=== PATIENT | female | born 1960 | race Caucasian/White ===

== ENCOUNTER 2025-02-22 13:37 | Outpatient (CLI) | payer OTHER, SELFPAY ==
--- NOTE | ~2025-02-22 | MM_ITS ---
CORRECTED REPORT dictation correction in Findings category Findings should read There is no mammographic evidence for malignancy in the LEFT breast [facility] [place] 05/09/2025 This report was recreated on 05/09/25. Original report was Y TENDER EXAMINATION: MM screening april BI w kobe HISTORY: Screening TECHNIQUE: Craniocaudal and mediolateral oblique 3-D tomosynthesis images were obtained and synthetic 2-D images were generated. CAD analysis was submitted and interpreted. COMPARISON: No prior mammogram is available for comparison at this institution. BREAST PARENCHYMAL COMPOSITION: Not dense: There are scattered areas of fibroglandular density. FINDINGS: There are scattered small obscured masses in the right breast. There are no suspicious calcifications or architectural distortion. There is no mammographic evidence for malignancy in the LEFT breast. IMPRESSION: 1. Scattered obscured small right breast masses. 2. Additional mammographic views and possible breast ultrasound are recommended. BI-RADS Category 0: Incomplete: Needs additional imaging evaluation. Reviewed, dictated and finalized at location B. Y TENDER IMPRESSION: 1. Scattered obscured small right breast masses. 2. Additional mammographic views and possible breast ultrasound are recommended . BI-RADS Category 0: Incomplete: Needs additional imaging evaluation.
--- OUTSIDE RECORDS SUMMARY | 2025-02-22 07:29 | XMS_ITS | Encounter Summary ---
Author Organization [facility] Address [facility] [place] [address] Care Team Providers Care Pediatric Immunologist Name Role Phone Kwesi Chaudhry MD Primary Care Provider [phone] Reason for Referral * Imaging (Routine) - Closed Specialty Diagnoses / Procedures Referred By Venus torres Referred To Contact RADIOLOGY Diagnoses Other specified abnormal findings of blood chemistry Procedures NM PARATHYROID SCAN Kwesi Chaudhry MD [address] [facility] [address] [place] [address] Phone: tel: fax: Referral ID Status Reason Start Date Expiration Date Visits Re quested Visits Authorized [id number] Closed 02/15/2025 04/01/2025 4 4 NG ENGINEER Reason for Visit * Imaging (Routine) - Closed Specialty Diagnoses / Procedures Referred By Venus torres Referred To Contact RADIOLOGY Diagnoses Other specified abnormal findings of blood chemistry Procedures NM PARATHYROID SCAN Kwesi Chaudhry MD [address] [facility] [address] [place], [place] [address] Phone: tel: fax: Referral ID Status Reason Start Date Expiration Date Visits Re quested Visits Authorized [id number] Closed 02/15/2025 04/01/2025 4 4 Encounter Details Date Type Department Care Team (Late st Contact Info) Description 02/22/2025 7:29 AM PIPING ENGINEER Hospital Encounter [facility] [place] [address] Kwesi Chaudhry MD [address] [facility] [address] [place] [address] Arrived Social History Tobacco Use Types Packs/Day Years Used Date Smoking Tobacco: Never Assessed Comments Unknown Sex and Gender Information Value Date Recorded Sex Assigned at Female 01/31/2025 11:19 AM CDT Legal Sex Female 1:36 AM CDT Gender Identity Not on file Sexual Orientation Not on file documented as of this encounter Plan of Treatment Not on file documented as of this encounter Procedures Procedure Name Priority Date/Time Associated Diagnosis Comments NM PARATHYROID SCAN Routine 02/22/2025 1 :52 PM PIPING ENGINEER Other specified abnormal findings of blood chemistry documented in this encounter Results * NM PARATHYROID SCAN (02/22/2025 1:52 PM PIPING ENGINEER) Anatomical Region Laterality Modality Thyroid Nuclear Medicine 02/22/2025 2:04 PM PIPING ENGINEER Impressions 02/22/2025 2:11 PM PIPING ENGINEER IMPRESSION: No scintigraphic evidence for parathyroid hyperplasia or parathyroid adenoma. Ordered By: KWESI CHAUDHRY Interpreted By: Filiberto Ram MD, 02/22/2025 2:04 PM Narrative 02/22/2025 2:11 PM PIPING ENGINEER [address] [address] EXAMINATION: PARATHYROID SCINTIGRAPHY DATE: 02/22/2025 7:34 AM HISTORY: 64-year-old female with elevated parathyroid hormone and serum calcium. RADIOPHARMACEUTICAL: 21.7 mCi Tc-99m sestamibi via intravenous injection at the left hand. TECHNIQUE: Standard parathyroid scintigraphy with planar and SPECT imaging of the neck and upper chest at approximately 10 minutes and 4 hours after uneventful intravenous administration of radiotracer. COMPARISON: None. FINDINGS: There is normal distribution of radiotracer on early and delayed imaging. No persistent focal radiotracer uptake in the neck or superior mediastinum is demonstrated. Procedure Note Filiberto Ram MD - 02/22/2025 [facility] [address] EXAMINATION: PARATHYROID SCINTIGRAPHY DATE: 02/22/2025 7:34 AM HISTORY: 64-year-old female with elevated parathyroid hormone and serumcalcium. RADIOPHARMACEUTICAL: 21.7 mCi Tc-99m sestamibi via intravenous injectionat the left hand. TECHNIQUE: Standard parathyroid scintigraphy with planar and SPECT imagingof the neck and upper chest at approximately 10 minutes and 4 hours afteruneventful intravenous administration of radiotracer. COMPARISON: None. FINDINGS: There is normal distribution of radiotracer on early and delayed imaging.No persistent focal radiotracer uptake in the neck or superior mediastinumis demonstrated. IMPRESSION: No scintigraphic evidence for parathyroid hyperplasia or parathyroidadenoma. Ordered By: KWESI CHAUDHRY Interpreted By: Filiberto Ram MD, 02/22/2025 2:04 PM Kwesi Chaudhry MD [facility] Final Result documented in this encounter Visit Diagnoses Diagnosis Other specified abnormal findings of blood chemistry documented in this encounter Care Teams Pediatric Immunologist Relationship Specialty Start Date End Date Kwesi Chaudhry MD [address] [facility] [address] [place] [phone] PCP - General FAMILY PRACTICE 01/31/25 documented as of this encounter
--- OUTSIDE RECORDS SUMMARY | 2025-02-22 14:44 | XMS_ITS | Clinical Summary ---
Author Organization [facility] Address [address] [place] [address] Care Team Providers Care Rn Telephonic Name Role Phone Kim Torres MD Primary Care Provider [phone] Allergies Active Allergy Reactions Criticality Noted Date Comments Cefuroxime Unknown,Hives Medium 11/05/2017 Hives Clarithromycin Unknown,Rash Medium 11/05/2017 Rash Erythromycin Unknown,Rash Medium 11/05/2017 Rash Fluticasone Propion-Salmeterol Wheezing Medium 08/23/2019 Causes asthma attacks Morphine Itching Low 11/05/2017 Itching Morphine Sulfate Hives Medium 08/23/2019 Other Hives Medium 08/23/2019 Penicillin V Potassium Unknown 08/23/2019 Penicillins Rash Medium 11/05/2017 Rash Sulfa (Sulfonamide Antibiotics) Itching,Hives Medium 11/05/2017 Hives Tetracycline Hives Medium 11/05/2017 Hives Tetracycline Hcl Hives Medium 08/23/2019 Tissue Adhesive Rash Medium 12/25/2022 Dermabond on belly button incision. Turned blood red. 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 Do not swallow. 10.2 g 3 4 Active gabapentin (NEURONTIN) 300 mg capsule TAKE 1 OR TWO (2) CAPSULES BY MOUTH AT BEDTIME. 180 capsule 1 5 Active EPINEPHrine 0.3 mg/0.3 mL auto-injection syringeIndicati ons:Anaphylaxis Inject 0.6 mL (0.6 mg total) into the muscle as instructed as needed for anaphylaxis Call 911 after use. 1 each 1 5 Active albuterol HFA (PROVENTIL HFA,VENTOLIN HFA,PROAIR HFA) 90 mcg/actuation inhaler USE TWO PUFFS EVERY 4 HOURS NEEDED 6.7 g 1 5 Active Active Problems Problem Noted Date Diagnosed Date Nasal valve stenosis 12/28/2023 Chronic pansinusitis 12/28/2023 Hypertrophy of both inferior nasal turbinates Nasal mass 12/28/2023 Annual physical exam 12/10/2023 Obesity, morbid, BMI 40.0-49.9 06/27/2020 Other specified anxiety disorders 05/27/2018 Laryngopharyngeal reflux 10/02/2016 Moderate persistent asthma with exacerbation GUERO (generalized anxiety disorder) 07/02/2016 Resolved Problems Problem Noted Date Diagnosed Date Resolved Date Closed displaced fracture of base of fifth metacarpal bone of left hand 12/08/2022 12/10/2023 Tinea cruris 11/21/2021 12/10/2023 Acute cystitis without hematuria 02/19/2021 12/10/2023 Palpitations 12/20/2020 12/10/2023 Non-recurrent acute suppurat rommel otitis media of left ear 08/23/2019 06/27/2020 Chronic ethmoidal sinusitis 10/02/2016 06/27/2020 Unspecified asthma with (acute) exacerbation 7 06/27/2020 Overview (08/23/2019): with triggers Immunizations Immunization Administration Dates Next Due Influenza, Unspecified 01/12/2024(Deferr ed: Patient Refused),01/30/2023(Deferred: Patient Refused),02/09/2022(Deferred: Patient Refused),01/11/2022(Deferred: Patient Refused),01/30/2021(Deferred: Patient Refused) Surgical History Surgery Date Site/Laterality Comments ELBOW ARTHROPLASTY 04/13/2007 - 04/12/2008 Right HYSTERECTOMY CHOLECYSTECTOMY SINUS SURGERY SECTION 1989, 1993 JOINT REPLACEMENT 04/13/2014 - 04/12/2015 Right knee KNEE ARTHROSCOPY Right multiple ORIF FINGER / THUMB FRACTURE 12/11/2022 Left LT. 5TH ORIF Medical History Medical History Date Comments Allergic rhinitis Obesity Asthma RLS (restless legs syndrome) Anxiety Sleep apnea GERD (gastroesophageal reflux disease) Family History Medical History Relation Name Comments Heart disease Father No Known Problems Half-Brother 1 No Known Problems Half-Brother 2 No Known Problems Half-Brother 3 COPD Mother Heart failure Mother pacemaker Mother No Known Problems Sister 2 Relation Name Status Comments Father Half-Brother 1 Alive Half-Brother 2 Alive Half-Brother 3 Alive Mother Alive Sister 2 Alive Social History Tobacco Use Types Packs/Day Years Used Date Smoking Tobacco: Never Smokeless Tobacco: Never Tobacco Cessation:Counseling Given: Not Answered Alcohol Use Standard Drinks/Week Comments Never 0 (1 standard drink = 0.6 oz pur e alcohol) AUDIT-C Answer Date Recorded Frequency of Alcohol Consumption Not on file 11/03/2023 Q2: How many drinks containi ng alcohol do you have on a typical day when you are drinking? Patient does not drink Frequency of Binge Drinking Not on file 10/12 PHQ-2 Answer Date Recorded PHQ-2 Total Score (If total score is 3 or more points, staff should administer the PHQ-9) 0 12/10/2023 Personal Safety Answer Date Recorded Have you ever been in or are you currently in a harmful physical or emotional relationship or is someone making you feel afraid or unsafe? Denies 2023 Comments No Sex and Gender Information Value Date Recorded Sex Assigned at Not on file Legal Sex Female 2:28 AM EXAMINATION SCORER Gender Identity Not on file Sexual Orientation Not on file Last Filed Vital Signs Vital Sign Reading Time Taken Comments Blood Pressure 160/92 08/29/2024 11:38 AM CDT Pulse 77 08/29/2024 11:38 AM CDT Temperature 36.9 C (98.5 F) 08/29/2024 11:38 AM CDT Respiratory Rate 18 12/28/2023 10:42 AM CDT Oxygen Saturation 96% 08/29/2024 11:38 AM CDT Inhaled Oxygen Concentration - - Weight 102.5 kg (226 lb) 12/21/2023 10:02 AM CDT Height 165.1 cm (5' 5) 08/29/2024 11:38 AM CDT Body Mass Index 37.61 12/21/2023 10:02 AM CDT Plan of Treatment Health Maintenance Due Date Last Done Comments Colon Cancer Screening-Colonoscopy 1960 Hepatitis C Screening 1960 DTaP/Tdap/Td Vaccine (1 - Tdap) 1973 Hepatitis B Screening 01/09/1980 Pneumococcal vaccine <65 (1 of 2 - PCV) 1981 Zoster Vaccine (1 of 2) 01/09/2012 Breast Cancer Screening-Mammogram 08/07/2018 018, 12/02/2014 Depression Screening 12/09/2024 12/10/2023, 11/27/2022, 11/21/2021, Additional history exists Regular Well Visit/Exam 18-64 12/09/2024 12/10/2023, 11/27/2022 Influenza Vaccine (#1) 2024 Medical Devices Implanted Type Area Testing Machine Operator Device Identifier Shelf Expiration Date Model / Serial / Lot Patella Patella Right: Knee Plate Plate Right: Elbow [employer] Damien .035in 9in 1 [place] Smooth Wire Fixation [id number] - [id number] Implanted:Qty: 2 on 12/11/2022 by Brad Schulte MD at [facility] [employer] [id number] / / [employer] Arthrex Dx Fibertak Needle Marks Suture Sterile Latex Free [id number] - [id number] Implanted:Qty: 1 on 2023 by Brad Schulte MD at [facility] Left: Hand [employer] [id number] 04/12/2027 [id number] / / [id number] Procedures Procedure Name Priority Date/Time Associated Diagnosis Comments DIAGNOSTIC MAMMOGRAM BILATERAL W HEBER Routine 08/07/2017 1:41 PM CDT from Last 3 Months or Most Recently Relevant to Health Maintenance Results * Diagnostic Mammogram Bilateral W Heber (08/07/2017 1:41 PM CDT) Anatomical Region Laterality Modality Breast Bilateral Mammography 08/07/2017 1:41 PM CDT Impressions 08/07/2017 2:46 PM CDT OVERALL STUDY BIRADS: 2 BENIGN No evidence of malignancy. No abnormality at the site of concern in the upper outer left breast. Base any further evaluation on clinical examination. A 1 year screening mammogram is recommended. The patient was notified of the results. Electronically signed by: Dr. Karthikeyan Cifuentes M.D. nh/:08/07/2017 14:46:04 Dietary Clerk: Maxine CARBALLO(Shannen)(Stephanie), [facility] letter sent: Normal Exam Abnormal History Reading location: [facility] OVERALL STUDY BIRADS: 2 Benign [EOD] Narrative 08/07/2017 2:46 PM CDT - MG - US BILATERAL DIGITAL DIAGNOSTIC MAMMOGRAM 3D/2D AND TARGETED LEFT ULTRASOUND WITH MEDIOLATERAL OBLIQUE CRANIOCAUDAL: 08/07/2017 The study was acquired using full field digital technology and interpreted from soft copy. 2D digital mammographic views, as well as 3D digital tomosynthesis were performed in the CC and MLO projections. CLINICAL: 57-year-old woman presents for evaluation of pain and lump in the upper outer left breast, and annual mammography of right breast. COMPARISONS: Comparison is made to exams dated: 12/02/2014 mammogram - [facility] and 09/30/2011 mammogram - [facility]. BREAST TISSUE: There are scattered areas of fibroglandular density. MAMMOGRAPHIC FINDINGS: A radiopaque BB was placed over the site of palpable concern in the upper outer left breast. There is no mammographic abnormality at this site. Targeted ultrasound will be performed. There are multiple, bilateral, small waxing and waning low density masses, most consistent with cysts. There is no dominant mass, suspicious calcification or architectural distortion in either breast. ULTRASOUND FINDINGS: Targeted left breast ultrasound at the site of concern at 2 o'clock 10-11 cm from the nipple demonstrated normal-appearing tissue. There is no suspicious abnormality. Procedure Note Provider, MD Len - 08/28/2020 - MG - US BILATERAL DIGITAL DIAGNOSTIC MAMMOGRAM 3D/2D AND TARGETED LEFT ULTRASOUNDWITH MEDIOLATERAL OBLIQUE CRANIOCAUDAL: 08/07/2017 The study was acquired using full field digital technology and interpretedfrom soft copy. 2D digital mammographic views, as well as 3D digital tomosynthesis were performed in the CC and MLO projections. CLINICAL: 57-year-old woman presents for evaluation of pain and lump inthe upper outer left breast, and annual mammography of right breast. COMPARISONS: Comparison is made to exams dated: 12/02/2014 mammogram -[facility] and 09/30/2011 mammogram - [facility]. BREAST TISSUE: There are scattered areas of fibroglandular density. MAMMOGRAPHIC FINDINGS: A radiopaque BB was placed over the site of palpable concern in the upper outer left breast. There is no mammographicabnormality at this site. Targeted ultrasound will be performed. There are multiple, bilateral, small waxing and waning low density masses,most consistent with cysts. There is no dominant mass, suspiciouscalcification or architectural distortion in either breast. ULTRASOUND FINDINGS: Targeted left breast ultrasound at the site of concern at 2 o'clock 10-11 cm from the nipple demonstrated normal-appearingtissue. There is no suspicious abnormality. IMPRESSION: OVERALL STUDY BIRADS: 2 BENIGN No evidence of malignancy. No abnormality at the site of concern in theupper outer left breast. Base any further evaluation on clinical examination. A 1 year screening mammogram is recommended. The patient was notified of the results. Electronically signed by: Dr. Karthikeyan Cifuentes M.D. nh/:08/07/2017 14:46:04 Dietary Clerk: Maxine Suh RT(R)(Stephanie), [facility] letter sent: Normal Exam Abnormal History Reading location: [facility] OVERALL STUDY BIRADS: 2 Benign [EOD] us Kim Torres MD IMG MAMMO PROCEDURES Final Re sult from Last 3 Months or Most Recently Relevant to Health Maintenance Insurance [facility] Care Teams Rn Telephonic Relationship Specialty Start Date End Date Kim Torres MD PCP - General Family Medicine 08/23/19
--- OUTSIDE RECORDS SUMMARY | 2025-02-22 14:45 | XMS_ITS | Encounter Summary ---
Author Organization [facility] Address [address] [place] [id number] Care Team Providers Care Animal Attendant Name Role Phone Johnny Chaudhry MD Primary Care Provider [phone] Encounter Details Date Type Department Care Team (Latest Contact Info) Description 02/22/2025 Travel Social History Tobacco Use Types Packs/Day Years Used Date Smoking Tobacco: Never Assessed Comments Unknown Sex and Gender Information Value Date Recorded Sex Assigned at Female 01/31/2025 11:19 AM CDT Legal Sex Female 1:36 AM CDT Gender Identity Not on file Sexual Orientation Not on file documented as of this encounter Plan of Treatment Not on file documented as of this encounter Visit Diagnoses Not on filedocumented in this encounter Care Teams Animal Attendant Relationship Specialty Start Date End Date Johnny Chaudhry MD [address] [place] [phone] PCP - General FAMILY PRACTICE 01/31/25 documented as of this encounter
--- OUTSIDE RECORDS SUMMARY | 2025-02-22 14:45 | XMS_ITS | Encounter Summary ---
Author Organization [facility] Care Team Providers Care Topper Packer Name Role Phone Rashel Torres MD Primary Care Provider [phone] Encounter Details Date Type Department Care Team (Latest Contact Info) Description 10/02/2016 Orders Only [facility] CLINCONV ProviderLen MD [address] [place] [id number] Social History Tobacco Use Types Packs/Day Years Used Date Smoking Tobacco: Never Assessed Comments Unknown Sex and Gender Information Value Date Recorded Sex Assigned at Not on file Legal Sex Female 2:28 AM ELECTROPLATER HELPER Gender Identity Not on file Sexual Orientation Not on file documented as of this encounter Functional Status documented as of this encounter Plan of Treatment Not on file documented as of this encounter Procedures Procedure Name Priority Date/Time Associated Diagnosis Comments AUDIOLOGY RECORD 10/02/2016 12:0 0 AM CDT documented in this encounter Results * AUDIOLOGY RECORD (10/02/2016 12:00 AM CDT) Narrative 10/02/2016 12:00 AM CDT Ordered by an unspecified provider. Historical Provider NURSING COMMUNICATION Fin al Result documented in this encounter Visit Diagnoses Not on filedocumented in this encounter Care Teams Topper Packer Relationship Specialty Start Date End Date Rashel Torres MD PCP - General Family Medicine 08/23/19 documented as of this encounter
--- OUTSIDE RECORDS SUMMARY | 2025-02-22 14:45 | XMS_ITS | Clinical Summary ---
Author Organization [facility] [place] [address] Care Team Providers Care Event Mgr Name Role Phone Kwesi Chaudhry MD Primary Care Provider [phone] Encounters Date Type Department Care Team Description 02/22/2025 7:29 AM CLOTHING DESIGNER Hospital Encounter [facility] [place] [address] Kwesi Chaudhry MD Arrived 02/22/2025 Travel 01/31/2025 11:28 AM CDT - 01/31/2025 11:59 PM CDT Hospital Encounter [facility] [address] [place] [id number] Kwesi Chaudhry MD Discharge Disposition: Home or Self Care (Routine Discharge) 01/31/2025 Travel from Last 3 Months Social History Tobacco Use Types Packs/Day Years Used Date Smoking Tobacco: Never Assessed Comments Unknown Sex and Gender Information Value Date Recorded Sex Assigned at Female 01/31/2025 11:19 AM CDT Legal Sex Female 1:36 AM CDT Gender Identity Not on file Sexual Orientation Not on file Plan of Treatment Health Maintenance Due Date Last Done Comments Cervical Cancer Screening Pa p Smear (Age 30 to 64) Every 3 Years 1962 Colorectal Cancer Screening Colonoscopy (10 Years) 1962 Annual Physical 1965 Hepatitis C 01/09/1980 DTaP, Tdap and Td Vaccines ( 1 - Tdap) 1981 Cervical Cancer Screening Pa p with HPV Testing (Age 30 to 64) Every 5 Years 01/09/1992 Cervical Cancer Screening wi th HPV 01/09/1992 Pneumococcal Vaccine: 50+ Years (1 of 1 - PCV) 01/09/2012 Zoster Vaccines (1 of 2) 01/09/2012 Mammogram Screening 08/08/2019 08/07/2017, 12/02/2014 COVID-19 Vaccine (1 - 2024-2 6 season) 2024 Influenza Adult (#1) 2025 RSV Immunization or 60+ Years (1 - 1-dose 75+ series) 2037 Hepatitis A Vaccines Aged Out No long er eligible based on patient's age to complete this topic Meningococcal B Vaccine Aged Out No l onger eligible based on patient's age to complete this topic Meningococcal Vaccine Aged Out No lorraine bere eligible based on patient's age to complete this topic RSV Immunizations Under 20 Months Aged Out No longer eligible b ased on patient's age to complete this topic Procedures Procedure Name Priority Date/Time Associated Diagnosis Comments NM PARATHYROID SCAN Routine 02/22/2025 1 :52 PM CLOTHING DESIGNER Other specified abnormal findings of blood chemistry XR HIP RT 2V STAT 01/31/2025 11:44 AM CDT Pain in right hip XR LUMB SPINE 3V STAT 01/31/2025 11:4 4 AM CDT Low back pain, unspecified from Last 3 Months Results * NM PARATHYROID SCAN (02/22/2025 1:52 PM CLOTHING DESIGNER) Anatomical Region Laterality Modality Thyroid Nuclear Medicine 02/22/2025 2:04 PM CLOTHING DESIGNER Impressions 02/22/2025 2:11 PM CLOTHING DESIGNER IMPRESSION: No scintigraphic evidence for parathyroid hyperplasia or parathyroid adenoma. Ordered By: KWESI CHAUDHRY Interpreted By: Filiberto Ram MD, 02/22/2025 2:04 PM Narrative 02/22/2025 2:11 PM CLOTHING DESIGNER [facility] [address] [place], [place] [address] EXAMINATION: PARATHYROID SCINTIGRAPHY DATE: 02/22/2025 7:34 AM [...] Procedure Note Filiberto Ram MD - 02/22/2025 [facility] [address] [place], [place] [address] EXAMINATION: PARATHYROID SCINTIGRAPHY DATE: 02/22/2025 7:34 AM [...] By: Filiberto Ram MD, 02/22/2025 2:04 PM us Kwesi Chaudhry MD NUC MED Final Result * XR LUMB SPINE 3V (01/31/2025 11:44 AM CDT) Anatomical Region Laterality Modality Spine Radiographic Iwona ging 01/31/2025 11:5 1 AM CDT Impressions 01/31/2025 11:52 AM CDT IMPRESSION: 1. Early degenerative changes without evidence of malalignment. If neurologic signs are present, MRI recommended. 2. Possible nonobstructing calculus right kidney measuring 4 mm. Ordered By: KWESI CHAUDHRY Interpreted By: Chandu Izaguirre, 01/31/2025 11:51 AM Narrative 01/31/2025 11:52 AM CDT [facility] [place] [address] EXAMINATION: LUMBAR SPINE EXAM DATE: 01/31/2025 11:32 AM REASON FOR EXAM: low back pain, unspecified COMPARISON: None TECHNIQUE:3 views FINDINGS: 5 lumbar-type vertebrae are identified. Vertebral body height and alignment are normal at all levels. No evidence of fracture or malalignment. Early degenerative disc disease. Possible nonobstructing calculus right kidney measuring 4 mm. Prior cholecystectomy. Procedure Note Chandu Izaguirre MD - 01/31/2025 [facility] [place] [address] EXAMINATION: LUMBAR SPINE EXAM DATE: 01/31/2025 11:32 AM REASON FOR EXAM: low back pain, unspecified COMPARISON: None TECHNIQUE:3 views FINDINGS: 5 lumbar-type vertebrae are identified. Vertebral body height and alignment are normal at all levels. No evidence of fracture or malalignment. Early degenerative disc disease. Possible nonobstructing calculus right kidney measuring 4 mm. Prior cholecystectomy. IMPRESSION: 1. Early degenerative changes without evidence of malalignment. Ifneurologic signs are present, MRI recommended. 2. Possible nonobstructing calculus right kidney measuring 4 mm. Ordered By: KWESI CHAUDHRY Interpreted By: Chandu Izaguirre, 01/31/2025 11:51 AM us Kwesi Chaudhry MD GENERAL IMAGING Final Result * XR HIP RT 2V (01/31/2025 11:44 AM CDT) Anatomical Region Laterality Modality Hip Radiographic Iwona ging 01/31/2025 11:5 2 AM CDT Impressions 01/31/2025 11:52 AM CDT =====IMPRESSION:===== No acute fracture or dislocation. Early osteoarthritis. Ordered By: KWESI CHAUDHRY Interpreted By: Chandu Izaguirre, 01/31/2025 11:52 AM Narrative 01/31/2025 11:52 AM CDT [place] [address] EXAMINATION: RIGHT HIP Exam date/time: 01/31/2025 11:32 AM Reason For Exam: pain in right hip Comparison: None Technique: 2 views. Findings: No obvious soft tissue abnormality. Early right hip and sacroiliac osteoarthritis. No acute fracture or dislocation. Procedure Note Chandu Izaguirre MD - 01/31/2025 [place] [address] EXAMINATION: RIGHT HIP Exam date/time: 01/31/2025 11:32 AM Reason For Exam: pain in right hip Comparison: None Technique: 2 views. Findings: No obvious soft tissue abnormality. Early right hip and sacroiliac osteoarthritis. No acute fracture or dislocation. =====IMPRESSION:===== No acute fracture or dislocation. Early osteoarthritis. Ordered By: KWESI CHAUDHRY Interpreted By: Chandu Izaguirre, 01/31/2025 11:52 AM Kwesi Chaudhry MD GENERAL IMAGING Final Result from Last 3 Months Insurance [facility] Care Teams Event Mgr Relationship Specialty Start Date End Date Kwesi Chaudhry MD [address] [place], [place] [id number] PCP - General FAMILY PRACTICE 01/31/25
== END 2025-02-22 13:38 | disposition home or self-care (01) ==
LOC: ANHFOHIMG 13:42
PROVIDERS: PCP Internal Medicine; Visit Provider Obstetrics & Gynecology
DX: Z12.31 Encounter for screening mammogram for malignant neoplasm of breast (principal); R92.8 Other abnormal and inconclusive findings on diagnostic imaging of breast
CPT/HCPCS: 77063; 77067